=== PATIENT | male | born 2000 | race Caucasian/White ===

== ENCOUNTER 2023-10-20 22:27 | Emergency (ER) | payer OTHER ==
[2023-10-20 23:01] VITALS: O2SAT 99
--- NOTE | 2023-10-20 23:40 | XRAY Report ---
PROCEDURE: Foot 3+V RT INDICATIONS: Trauma TECHNIQUE: 3 views of the foot were acquired. COMPARISON: None. FINDINGS: Bones: Well-corticated ossific density adjacent to the lateral aspect of the first interphalangeal kerri int space is favored to represent sequela of prior trauma versus ossicle. No acute fractures or dislo cations. No suspicious bony lesions. Soft tissues: No tibiotalar joint effusion. Achilles tendon appears normal. IMPRESSION: No acute bony abnormality. Reviewed by: Yasmin Neves MD, PhD on 10/20/2023 11:39 PM PDT Approved by: Yasmin Neves MD, PhD on 10/20/2023 11:39 PM PDT Station ID: [id number]
--- NOTE | 2023-10-21 01:48 | ED Physician Documentation ---
PD HPI LOWER EXT INJURY - Stated complaint Stated Complaint: R TOE PX - Chief complaint Chief Complaint: Ext Problem - History obtained from History obtained from: Patient - Additional information Additional information: HPI from patient. Patient accidentally struck a wall with his right foot while walking at home tonight, jamming the right great toe into the wall. This was associated with immediate onset right toe pain that is exacerbated with movement, palpation, weight-bearing. He also notes injury/damage to the right great toenail. UTD on tetanus. PD PAST MEDICAL HISTORY - Past Medical History Past Medical History: No Cardiovascular: None Respiratory: None Neuro: None Endocrine/Autoimmune: None GI: None : None HEENT: None Psych: None Musculoskeletal: None Derm: None - Past Surgical History Past Surgical History: Yes General: Appendectomy - Present Medications Home Medications: Ambulatory Orders Medication Instructions Recorded Confirmed No Known Home Medications 10/20/23 10/20/23 - Allergies Allergies/Adverse Reactions: Allergies Allergy/AdvReac Type Severity Reaction Status Date / Time No Known Drug Allergies Allergy Verified 10/20/23 22:53 - Social History Does the pt smoke?: No Smoking Status: Never smoker Does the pt drink ETOH?: No Does the pt have substance abuse?: No - Immunizations Immunizations are current?: Yes - POLST Patient has POLST: No PD ED PE EXPANDED - Extremities Extremities: Other (TTP right great toe at, and distal to, IP joint. No obvious deformity aside from the nail as documented above) Feet visual: 1 - deformity (distal end of nail is partially avulsed but the laceration through the nail itself does is incomplete, with the lateral-most aspect without laceration or defect in the nail) Results - Vitals Vitals: Vital Signs - 24 hr 10/20/23 10/21/23 22:48 03:13 Temperature 36.9 C Heart Rate 76 70 Respiratory 16 16 Rate Blood Pressure 146/119 H 132/78 H O2 Saturation 99 99 Oxygen O2 Source Room air - Rads (name of study) right foot xrays Relevant Findings:: Prelim report reviewed, See rad report Procedures - Regional nerve block - Minor Nerve block site: Digital - note digit(s) (right great toe) Right / left: Right Nerve block anesthesia: Lidocaine 2%, Marcaine 0.5%, Other (1:1 mixture) Nerve block aftercare: Excellent anesthesia, Patient tolerated well, No complications PD Medical Decision Making - ED course Complexity details: considered differential, d/w patient ED course: No acute abnormality on plain-film xrays of the right foot. The right great toe is anesthetized with digital block so as to facilitate excision of the distal end of the toe nail. As documented above, there is a lace ration through most of the distal portion of the toe nail with some adherence to the underlying nail bed as well as small but significant attachment to the lateral portion of the distal end of the nail due to the horizontal nail laceration not being complete from medial to lateral aspects. The distal nail is freed from the underlying nail bed using curved iris scissors which are then used to cut away the near-avulsed portion of the nail. There is no underlying laceration the nail bed. Bacitracin applied followed by dressing. Advised to follow up with PCP within 2- 3 days for recheck of the injury. Return precautions reviewed. Given 600mg ibuprofen prior to d/c and provided take-home pack of percocet. Departure - Departure Disposition: 01 Home, Self Care Clinical Impression: Toe sprain Qualifiers: Encounter type: initial encounter Qualified Code(s): S93.509A - Unspecified sprain of unspecified toe(s), initial encounter Toenail avulsion Qualifiers: Encounter type: initial encounter Qualified Code(s): S91.209A - Unspecified open wound of unspecified toe(s) with damage to nail, initial encounter Condition: Good Instructions: ED Sprain Toe Comments: There was no evidence of injury on the x-rays; specifically, no evidence of fracture nor dislocation. After numbing up your toe, I cut away the part of your toenail that had already partially torn away. The toenail will gradually grow back into place. In the meantime, wash the area with soap and water twice per day, apply an antibiotic ointment such as bacitracin before replacing the dressing. Follow-up with your primary care provider in 3 to 5 days for recheck of the wound. Discharge Date/Time: 10/21/23 03:13
[2023-10-21] MEDS ORDERED: LIDOCAINE-MPF 2% 5 ML VIAL ONE (02:16)
[2023-10-21] MEDS: BUPIVACAINE 0.5% PF 10 ML VIAL SUBQ STA (02:18)
[2023-10-21] MEDS: LIDOCAINE-MPF 2% 5 ML VIAL SUBQ STA (02:20)
[2023-10-21] MEDS: LIDOCAINE 2% 10 ML MDV SUBQ ONE (02:20)
[2023-10-21] MEDS: IBUPROFEN 600 MG TABLET PO STA (03:09)
[2023-10-21] MEDS: BACITRACIN ZINC OINT 1 PACKET TOP STA (03:10)
[2023-10-21] MEDS: oxyCODONE/ACET 5/325 Prepack 4 PO STA (03:10)
[2023-10-21 03:17] VITALS: BP 132/78
== END 2023-10-21 03:13 | disposition home or self-care (01) ==
LOC: ED 22:27
DX: S91.201A Unspecified open wound of right great toe with damage to nail, initial encounter (principal); S93.501A Unspecified sprain of right great toe, initial encounter; W22.01XA Walked into wall, initial encounter
CPT/HCPCS: 11730; 73630; 99283; A9270

== ENCOUNTER 2023-11-25 11:45 | Outpatient (CLI) | payer OTHER ==
--- NOTE | 2023-11-25 17:07 | XRAY Report ---
PROCEDURE: Shoulder 2+V LT INDICATIONS: PAIN IN LEFT SHOULDER TECHNIQUE: 3 views of the shoulder were acquired. COMPARISON: None. FINDINGS: Bones: No fractures or dislocations. No suspicious bony lesions. Normal glenohumeral alignment. Ac romioclavicular and coracoclavicular intervals are maintained. Visualized ribs appear intact. Soft tissues: No suspicious soft tissue calcifications. The visualized lungs are within normal limi ts. IMPRESSION: No acute bony abnormality. If pain persists with conservative management, consider repeat radiographs in 10-14 days or cross-sectional imaging. Reviewed by: Daisy Phoenix MD on 11/25/2023 5:06 PM PDT Approved by: Daisy Phoenix MD on 11/25/2023 5:06 PM PDT Station ID: [id number]
== END 2023-11-25 12:00 | disposition home or self-care (01) ==
LOC: DI.N 11:45
PROVIDERS: ATTEND Nurse Practitioner
DX: M25.512 Pain in left shoulder (principal)

== ENCOUNTER 2023-12-20 08:45 | Outpatient (CLI) | payer OTHER ==
[2023-12-20] MEDS ORDERED: iohexoL-240 10 ML VIAL IVP ONE (08:51)
[2023-12-20] MEDS ORDERED: GADOTERATE MEGLUMINE 5 MMOL/10 ML VIAL ONE (08:51)
[2023-12-20] MEDS ORDERED: LIDOCAINE-MPF 1% 5 ML VIAL ONE (08:51)
[2023-12-20] MEDS: LIDOCAINE-MPF 1% 5 ML VIAL SUBQ ONE (10:58)
[2023-12-20] MEDS: GADOTERATE MEGLUMINE 5 MMOL/10 ML VIAL IVP ONE (10:59)
[2023-12-20] MEDS: iohexoL-240 10 ML VIAL IVP ONE (11:00)
--- NOTE | 2023-12-20 17:07 | XRAY Report ---
PROCEDURE: Arthrogram Needle Placement INDICATIONS: L SHOULDER PAIN FLUOROSCOPY TIME: 0.5 MIN TECHNIQUE: The indications, alternatives, benefits, risks, and complications of the procedure were explained to the patient. Written informed consent was obtained and placed in the chart. The shoulder was examin ed fluoroscopically and a site for needle placement chosen for entry into the glenohumeral joint from an anterior approach. The skin was prepped and draped in the usual fashion, and 1% lidocaine infilt rated from skin down to joint capsule. A spinal needle was inserted into the glenohumeral joint, and a small amount of iodinated contrast media injected to confirm intra-articular placement of the need le tip. This was followed by approximately 12 mL dilute solution of a gadolinium containing MR contr ast agent. The needle was removed and a dressing was applied. The patient was given postprocedural instructions and sent to the MR suite for MR imaging. FINDINGS: Fluoroscopic spot images demonstrate intra-articular location of injected iodinated contrast. IMPRESSION: Successful fluoroscopically guided administration of dilute Gadolinium solution into the shoulder radha friedman for MR arthrogram. Reviewed by: You Rubio MD on 12/20/2023 5:06 PM PDT Approved by: You Rubio MD on 12/20/2023 5:06 PM PDT Station ID: [id number]
--- NOTE | 2023-12-21 11:36 | MRI Report ---
Arthrogram Shoulder LT CLINICAL HISTORY: 23 years of age, Male, L SHOULDER PAIN. Comparison: No priors available Technique: After the administration of 12 mL of dilute intra-articular Gadolinium contrast, oblique c oronal T1 and T2 spin echo with fat saturation, oblique sagittal T1 spin echo with and without fat sa turation, oblique sagittal T2 fast spin echo with fat saturation, axial T1 spin echo with fat saturat ion through the shoulder. Findings: Osseous acromial outlet: No significant degenerative changes of the acromioclavicular joint. Type I a cromion. No os acromiale. No subacromial/subdeltoid bursitis. Rotator cuff muscles and tendons: In the supraspinatus, there is near full-thickness, partial width t ear at the footprint and critical zone of the mid and posterior fiber, measuring 9 mm on sagittal dim ension. The infraspinatus is unremarkable. The teres minor is intact. The subscapularis is intact. Mu scles are intact without evidence of atrophy or edema. Labral and capsular structures: Superior labral tear. Biceps tendon and anchor: The extra-articular biceps tendon is unremarkable. The intra-articular [place] ps tendon is intact as well. Osseous and cartilaginous structures: No acute fracture. No focal chondral defect of the glenohumeral joint. Miscellaneous: No intra-articular bodies. The remaining muscles are normal in bulk without evidence o f atrophy or edema. Note contrast extravasating into the subacromial/subdeltoid bursa to suggest full -thickness tear. IMPRESSION: 1.Near full-thickness, partial width tear of the supraspinatus. 2.Superior labral tear. Reviewed by: Mary Ellen Hathaway MD on 12/21/2023 11:35 AM PDT Approved by: Mary Ellen Hathaway MD on 12/21/2023 11:35 AM PDT Station ID: [id number]
== END 2023-12-20 08:46 | disposition home or self-care (01) ==
LOC: DI 08:45
PROVIDERS: ATTEND Nurse Practitioner Family
DX: M75.112 Incomplete rotator cuff tear or rupture of left shoulder, not specified as traumatic (principal); S43.432A Superior glenoid labrum lesion of left shoulder, initial encounter
CPT/HCPCS: 23350; 73222; 77002; A9575; Q9966